=== PATIENT | female | born 1985 | race Two or more races ===

== ENCOUNTER 2019-04-13 14:11 | Emergency (ER) | payer OTHER ==
[~2019-04-13] VITALS: Ht 160 cm; Wt 65.0 kg
[2019-04-13 14:17] VITALS: BP 148/72
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
[2019-04-13] MEDS ORDERED: ONDANSETRON ODT 8 MG ONE (14:50)
[2019-04-13] MEDS ORDERED: HYDROmorphone 1 MG/ML, 1ML INJ ONE (14:50)
[2019-04-13] MEDS ORDERED: HYDROmorphone 1 MG/ML, 1ML INJ IM ONE (15:00)
[2019-04-13] MEDS ORDERED: ONDANSETRON ODT 8 MG PO ONE (15:00)
[2019-04-13] MEDS ORDERED: PLEASE ENTER ALLERGIES MC SCH (15:00)
--- NOTE | 2019-04-13 15:28 | NUR ---
PT RESTING. NO NEEDS AT THIS TIME. PT NO IN DISTRESS, RESP EVEN AND UNLABORED. PARTNER AT BEDSIDE.
--- NOTE | 2019-04-13 16:52 | NUR ---
Patient/Caregiver given discharge instructions and they have confirmed that they understand the instructions. Patient ambulatory with steady gait.
== END 2019-04-13 17:17 | disposition home or self-care (01) ==
LOC: ED 15:24
DX: S16.1XXA Strain of muscle, fascia and tendon at neck level, initial encounter (principal); S09.90XA Unspecified injury of head, initial encounter; G44.209 Tension-type headache, unspecified, not intractable; W19.XXXA Unspecified fall, initial encounter; Y93.89 Activity, other specified; Y92.89 Other specified places as the place of occurrence of the external cause; Y99.8 Other external cause status
CPT/HCPCS: 70450; 72125; 72192; 96372; 99284; J1170; Q0162